=== PATIENT | male | born 2000 | race African-American/Black ===

== ENCOUNTER 2021-10-01 13:36 | Emergency (ER) | payer MEDICAID ==
[~2021-10-01] VITALS: Ht 182.9 cm; Wt 75.0 kg
[2021-10-01] MEDS ORDERED: IBUPROFEN 400MG TABLET PO ONE (14:30)
[2021-10-01] MEDS ORDERED: ONDANSETRON 4MG ODT PO ONE (14:30)
[2021-10-01 15:01] VITALS: BP 122/67
[2021-10-01] MEDS ORDERED: IBUP-2028 MT (16:05)
== END 2021-10-01 17:19 | disposition home or self-care (01) ==
LOC: ER 13:36
DX: S09.8XXA Other specified injuries of head, initial encounter (principal); W17.89XA Other fall from one level to another, initial encounter; Y93.89 Activity, other specified; Y92.89 Other specified places as the place of occurrence of the external cause; Y99.8 Other external cause status
CPT/HCPCS: 70450; 99284; Q0162